=== PATIENT | male | born 1965 | race Two or more races ===

== ENCOUNTER 2017-11-11 23:40 | Emergency (ER) | payer SELFPAY ==
[~2017-11-11] VITALS: Ht 167.6 cm; Wt 79.4 kg
--- NOTE | 2017-11-12 00:01 | NUR ---
PT AMBULATORY TO ER BED 12. PT BIB SELF C/O LOW BACK PAIN X 3 MONTHS WHEN "GOING TO THE BATHROOM". PT PLACED ON JAILKEEPER. VSS/RESP EVEN UNLABORED/NAD NOTED/SKIN WARM AND DRY/DENIES N-V-D/AOX4. AWAITING MD CLAIRE.
--- NOTE | 2017-11-12 00:12 | NUR ---
Patient does not wish to proceed with medical care recommended by Dr. Gruber. Patient given information related to possible complications, up to and including , which could occur as a result of leaving the hospital at this time. Patient verbalizes understanding of risks involved due to leaving against medical advice. Patient has signed AMA form. Patient ambulatory with a steady gait.
[2017-11-12 00:14] VITALS: BP 151/102
== END 2017-11-12 00:15 | disposition left against medical advice (07) ==
LOC: ER 23:44
DX: M54.5 Low back pain (principal); Z53.20 Procedure and treatment not carried out because of patient's decision for unspecified reasons
CPT/HCPCS: A4606; Z7502; Z7610

== ENCOUNTER 2018-05-17 00:19 | Emergency (ER) | payer SELFPAY ==
[~2018-05-17] VITALS: Ht 167.6 cm; Wt 77.1 kg
--- NOTE | 2018-05-17 01:18 | NUR ---
PT BIB SELF C/O RETROSTERNAL CP X10 DAYS, INTERMITTENT, OCCURS WITH EXERTION, NON-RADIATING, PRESSURE-LIKE, WITH ASSOCIATED SOB. NO SOB OR RESP DISTRESS CURRENTLY. SKIN WARM DRY. DENIES PAIN AT THIS TIME. AMBULATORY STEADY GAIT. IN ER BED 11 ON MONITOR.
[2018-05-17 01:38] LABS: BASOPHILS # (AUTO) 0.1 /CMM (0.0-0.2); BASOPHILS % (AUTO) 0.9 % (0.0-2.0); EOSINOPHILS % (AUTO) 1.1 % (0.0-6.0); HEMATOCRIT 50 % (39-51); HEMOGLOBIN 16.9 g/dL (13.5-17.5); LYMPHOCYTES # (AUTO) 2.8 /CMM (0.8-4.8); LYMPHOCYTES % (AUTO) 39.1 % (20.0-44.0); MEAN CORPUSCULAR HEMOGLOBIN 30 PG (26.0-33.0); MEAN CORPUSCULAR HGB CONC 34 g/dl (31.0-36.0); MEAN CORPUSCULAR VOLUME 90 fL (80-96); MONOCYTES # (AUTO) 0.6 /CMM (0.1-1.30); MONOCYTES % (AUTO) 8.7 % (2.0-12.0); NEUTROPHILS # (AUTO) 3.5 /CMM (1.8-8.9); NEUTROPHILS % (AUTO) 50.2 % (43.0-81.0); PLATELET COUNT (AUTO) 243 /CMM (150-450); RDW COEFFICIENT OF VARIATION 12.6 (11.5-15.0); RED BLOOD CELL COUNT(AUTO) 5.57 MIL/uL (4.5-6.0); WHITE BLOOD COUNT (AUTO) 7.1 K/uL (4.3-11.0)
[2018-05-17 01:54] LABS: CALCIUM, SERUM 9.7 mg/dL (8.5-10.1); CARBON DIOXIDE 31 mmol/L (21-32); CHLORIDE 104 mmol/L (98-107); GLUCOSE 102 mg/dL (74-106); POTASSIUM 4.6 mmol/L (3.5-5.1); SODIUM SERUM 143 mmol/L (136-145); UREA NITROGEN, BLOOD 24 mg/dL (7-18)
[2018-05-17 01:57] LABS: D-DIMER 0.19 mg/L(FEU (0.17-0.50); INR 0.99 (0.87-1.13)
[2018-05-17 02:02] LABS: TROPONIN I < 0.017 ng/mL (0.00-0.056)
[2018-05-17 02:07] LABS: ALANINE AMINOTRANSFERASE 29 U/L (12-78); ALBUMIN 4.4 g/dL (3.4-5.0); ALKALINE PHOSPHATASE 103 U/L (46-116); ASPARTATE AMINOTRANSFERASE 22 U/L (15-37); B-TYPE NATRIURETIC PEPTIDE 27 PG/ML (0-125); BILIRUBIN,DIRECT 0.2 mg/dL (0.0-0.2); BILIRUBIN,TOTAL 1.1 mg/dL (0.2-1.0); TOTAL PROTEIN, SERUM 8.2 g/dL (6.4-8.2)
--- NOTE | 2018-05-17 02:30 | NUR ---
Patient discharged to home in stable condition. Written and verbal after care instructions given. Patient verbalizes understanding of instruction. AMBULATORY STEADY GAIT.
[2018-05-17 02:34] VITALS: BP 122/77
== END 2018-05-17 02:35 | disposition home or self-care (01) ==
LOC: ER 00:22
DX: R07.89 Other chest pain (principal)
CPT/HCPCS: 36415; 71045; 80048; 80076; 83880; 84484; 85025; 85378; 85730; 93005; 99285; A4606; Z7610

== ENCOUNTER 2021-09-17 16:35 | Emergency (ER) | payer SELFPAY ==
[~2021-09-17] VITALS: Ht 167.6 cm; Wt 81.6 kg
[2021-09-17 17:02] VITALS: BP 115/89
[2021-09-17] MEDS ORDERED: GUAIFENESIN/D-METHORPHAN HB 5 ML UDC ONE (17:15)
[2021-09-17] MEDS ORDERED: MECLIZINE HCL 25 MG TABLET ONE (17:16)
[2021-09-17] MEDS ORDERED: IBUPROFEN 400 MG TABLET ONE (17:16)
[2021-09-17] MEDS ORDERED: IBUPROFEN 400 MG TABLET PO ONE (17:30)
[2021-09-17] MEDS ORDERED: GUAIFENESIN/D-METHORPHAN HB 5 ML UDC PO ONE (17:30)
[2021-09-17] MEDS ORDERED: MECLIZINE HCL 25 MG TABLET PO ONE (17:30)
--- NOTE | 2021-09-17 17:35 | NUR ---
Patient eloped from facility. ER MD notified.
== END 2021-09-17 17:51 | disposition left against medical advice (07) ==
LOC: ER 16:37
DX: J06.9 Acute upper respiratory infection, unspecified (principal)
CPT/HCPCS: J8597

== ENCOUNTER 2022-03-11 10:16 | Emergency (ER) | payer SELFPAY ==
[~2022-03-11] VITALS: Ht 167.6 cm; Wt 78.0 kg
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
[2022-03-11] MEDS ORDERED: IBUPROFEN 400 MG TABLET ONE (11:18)
[2022-03-11] MEDS: IBUPROFEN 400 MG TABLET PO ONE (11:20)
[2022-03-11] MEDS ORDERED: IBUP-1957 PO (11:51)
--- NOTE | 2022-03-11 11:56 | NUR ---
Patient discharged to home in stable condition. Written and verbal after care instructions given. Patient verbalizes understanding of instruction.
[2022-03-11 11:57] VITALS: BP 150/110
== END 2022-03-11 11:57 | disposition home or self-care (01) ==
LOC: ER 10:18
DX: S43.101A Unspecified dislocation of right acromioclavicular joint, initial encounter (principal); X58.XXXA Exposure to other specified factors, initial encounter; Y93.89 Activity, other specified; Y92.89 Other specified places as the place of occurrence of the external cause; Y99.8 Other external cause status
CPT/HCPCS: 73030-TC